=== PATIENT | female | born 1965 | race Caucasian/White ===

== ENCOUNTER 2020-07-14 13:05 | Outpatient (REF) | payer OTHER, SELFPAY ==
[2020-07-15 09:55] LABS: BV Int Neg Control Negative (Negative); BV Int Pos Control Positive (Positive)
[2020-07-15 12:46] LABS: CT PCR NOT DETECTED (Not Detect.); NG PCR NOT DETECTED (Not Detect.)
[2020-07-20 20:12] LABS: HPV mRNA E6/E7 rflx Not Detected (Not Detected)
== END 2020-07-14 13:06 | disposition home or self-care (01) ==
LOC: HO.LAB 13:05
PROVIDERS: PCP Internal Medicine; Referring Provider Internal Medicine; Visit Provider Obstetrics & Gynecology
DX: Z01.419 Encounter for gynecological examination (general) (routine) without abnormal findings (principal); Z11.3 Encounter for screening for infections with a predominantly sexual mode of transmission; R30.0 Dysuria
CPT/HCPCS: 87480; 87491; 87510; 87591; 87624; 87625; 87660; 88141; 88142

== ENCOUNTER 2020-08-07 07:46 | Outpatient (REF) | payer OTHER, SELFPAY ==
[2020-08-07 08:42] LABS: MANUAL DIFF FLAG NO
[2020-08-07 09:02] LABS: Basophils Percent Auto 0.3 % (0-2); Eosinophils Absolute Auto 0.1 X10*3/uL (0.0-0.4); Eosinophils Percent Auto 1.5 % (0-4); Imm Gran Abs Auto 0.01 X10*3/uL (0.00-0.03); Imm Gran Pct Auto 0.1 % (0.0-0.4); Lymphocytes Absolute Auto 2.7 X10*3/uL (1.2-4.9); Lymphocytes Percent Auto 39.6 % (20-40); Mean Corpuscular HGB Conc 32.6 g/dl (31.0-35.0); Mean Corpuscular Hemoglobin 27.6 pg (27.0-33.0); Mean Corpuscular Volume 84.6 fL (80-98); Mean Platelet Volume 10.3 fL (9.4-12.3); Monocytes Absolute Auto 0.5 X10*3/uL (0.1-1.2); Monocytes Percent Auto 6.7 % (2-11); Neutrophils Absolute Auto 3.5 X10*3/uL (2.0-8.3); Neutrophils Percent Auto 51.8 % (45-73); Platelet Count 253 X10*3/uL (160-400); Red Blood Count 5.08 X10*6/uL (4.20-5.50); White Blood Count 6.7 X10*3/uL (4.8-10.8)
[2020-08-07 09:21] LABS: Alanine Aminotransferase 21 U/L (0-31); Albumin Level 4.1 g/dL (3.5-5.0); Alkaline Phosphatase 91 U/L (39-117); Anion Gap 12 (12-20); Aspartate Amino Transferase 18 U/L (5-31); Bilirubin Total 0.4 mg/dL (0.0-1.0); Blood Urea Nitrogen 11 mg/dL (9-16); Calcium 8.9 mg/dL (8.4-10.2); Carbon Dioxide 27 mmol/L (22-29); Chloride 105 mmol/L (96-108); Cholesterol 186 mg/dL; Estimated Glomerular Filt Rate > 60; Glucose Fasting 99 mg/dL (60-99); HDL Cholesterol 50 mg/dL; LDL Cholesterol Calculated 117 mg/dl; Potassium 4.5 mmol/l (3.3-5.1); Sodium 139 mmol/L (135-145); Total Protein 6.7 g/dL (6.5-8.0); Triglycerides 99 mg/dL
[2020-08-07 09:43] LABS: TSH reflex Free T4 5.45 mIU/mL (0.32-4.0); Vitamin D 25-OH Total 12.3 ng/mL (>30)
[2020-08-07 10:19] LABS: Free T4 (Free Thyroxine) 0.81 ng/dL (0.71-1.85)
== END 2020-08-07 07:47 | disposition home or self-care (01) ==
LOC: HO.LAB 07:46
PROVIDERS: PCP Internal Medicine; Visit Provider Internal Medicine
DX: E66.09 Other obesity due to excess calories (principal); E55.9 Vitamin D deficiency, unspecified
CPT/HCPCS: 36415; 80053; 80061; 82306; 84439; 84443; 85025

== ENCOUNTER 2020-09-19 14:05 | Outpatient (REF) | payer OTHER, SELFPAY ==
--- NOTE | 2020-09-19 14:08 | MM_ITS ---
EXAMINATION: MM SCREENING DIGITAL BREAST TOMOSYNTHESIS, BILATERAL CLINICAL INFORMATION: Screening. Asymptomatic. The lifetime risk of breast cancer based on the Tyrer-Cuzick Model is 7%. COMPARISON: Mammography: 12/28/2016, 12/13/2014 TECHNIQUE: Digital breast tomosynthesis is performed in both the craniocaudal and mediolateral oblique views along with computer-aided detection (CAD). Synthesized 2D images are generated from the tomosynthesis. FINDINGS: There are scattered areas of fibroglandular density (ACR BI-RADS breast composition Category b). There are no significant masses, abnormal calcifications, or other abnormalities. Parenchymal pattern is similar to prior studies. No significant changes. MM/MM tomosynthesis screening BI IMPRESSION: No mammographic evidence of malignancy. ASSESSMENT: BI-RADS 1: Negative RECOMMENDATION: Routine annual mammography screening. This patient's information was entered into a reminder system with a target due date for their next mammogram.
== END 2020-09-19 14:06 | disposition home or self-care (01) ==
LOC: HO.MAMMO 14:05
PROVIDERS: PCP Internal Medicine; Visit Provider Obstetrics & Gynecology
DX: Z12.31 Encounter for screening mammogram for malignant neoplasm of breast (principal)
CPT/HCPCS: 77063; 77067

== ENCOUNTER 2020-12-14 11:37 | Outpatient (REF) | payer OTHER, SELFPAY ==
[2020-12-15 09:21] LABS: Thyroglobulin Antibodies 1 IU/mL (< or = 1); Thyroid Peroxidase Antibodies 10 IU/mL (<9)
[2020-12-19 15:02] LABS: Vitamin D 25-OH, D2 <4 ng/mL; Vitamin D 25-OH, D3 11 ng/mL; Vitamin D 25-OH, Total 11 ng/mL (30-100)
== END 2020-12-14 11:38 | disposition home or self-care (01) ==
LOC: HO.LAB 11:37
PROVIDERS: PCP Internal Medicine; Visit Provider Internal Medicine
DX: E03.9 Hypothyroidism, unspecified (principal); E55.9 Vitamin D deficiency, unspecified
CPT/HCPCS: 36415; 82306; 84443; 86376; 86800

== ENCOUNTER → 2021-07-16 09:09 | Outpatient (BNVA) | payer OTHER, SELFPAY | PROVIDERS: Visit Provider Advanced Practice Midwife ==

== ENCOUNTER 2021-08-04 12:46 | Outpatient (REF) | payer OTHER, SELFPAY ==
--- NOTE | ~2021-08-04 | US_ITS ---
EXAMINATION: US PELVIS CLINICAL INFORMATION: Abnormal uterine and vaginal bleeding. COMPARISON: Pelvic ultrasound dated 11/21/2014. TECHNIQUE: Ultrasound of the pelvis is performed using both transabdominal and transvaginal transducers along with Doppler. Transvaginal imaging is performed due to inadequate visualization transabdominally. FINDINGS: Uterus: Anteverted/anteflexed measuring 13.0 x 5.1 x 7.0 cm. A small subserosal fibroid is seen in the posterior lower uterine segment measuring 1.1 x 0.5 x 0.7 cm. A small intramural fibroid is seen in the posterior body measuring 1.2 x 0.7 x 0.8 cm. The endometrium measures up to 1.1 cm at the level the fundus. The cervix is unremarkable. Right ovary: 2.5 x 1.9 x 1.9 cm with a volume of 4.7 cm. Color Doppler showed no abnormal vascular flow. Left ovary: 3.2 x 2.5 x 2.3 cm with a volume of 9.6 cm. Anechoic follicles are seen measuring up to 1.9 cm. Color Doppler showed no abnormal vascular flow. Urinary bladder: Moderately distended without focal abnormality. US/US pelvic and transvaginal IMPRESSION: 1. Very small uterine fibroids as detailed above were not seen previously. No associated or other significant uterine abnormality.
== END 2021-08-04 12:47 | disposition home or self-care (01) ==
LOC: HO.US 12:46
PROVIDERS: PCP Internal Medicine; Visit Provider Advanced Practice Midwife
DX: N93.9 Abnormal uterine and vaginal bleeding, unspecified (principal)
CPT/HCPCS: 76830; 76856

== ENCOUNTER 2021-08-13 10:01 | Outpatient (REF) | payer OTHER, SELFPAY ==
[2021-08-13 11:40] LABS: TSH reflex Free T4 3.08 uIU/mL (0.32-4.0)
[2021-08-15 21:11] LABS: Follicle Stimulating Hormone 7.6 mIU/mL
[2021-08-16 17:02] LABS: Thyroid Peroxidase Antibodies 12 IU/mL (<9)
[2021-08-16 21:10] LABS: Thyroglobulin Antibodies <1 IU/mL (< or = 1)
[2021-08-18 14:15] LABS: Vitamin D 25-OH, D2 25 ng/mL; Vitamin D 25-OH, D3 6 ng/mL; Vitamin D 25-OH, Total 31 ng/mL (30-100)
== END 2021-08-13 10:02 | disposition home or self-care (01) ==
LOC: HO.LAB 10:01
PROVIDERS: Absent Provider Internal Medicine; PCP Internal Medicine; Visit Provider Advanced Practice Midwife
DX: E03.9 Hypothyroidism, unspecified (principal); E06.3 Autoimmune thyroiditis; E55.9 Vitamin D deficiency, unspecified; R23.2 Flushing
CPT/HCPCS: 36415; 82306; 83001; 84443; 86376; 86800

== ENCOUNTER → 2021-08-16 10:58 | Outpatient (BNVA) | payer OTHER, SELFPAY | PROVIDERS: PCP Internal Medicine; Visit Provider Advanced Practice Midwife ==

== ENCOUNTER 2021-09-22 09:49 | Outpatient (REF) | payer OTHER, SELFPAY ==
--- NOTE | ~2021-09-22 | MM_ITS ---
EXAMINATION: MM SCREENING DIGITAL BREAST TOMOSYNTHESIS, BILATERAL CLINICAL INFORMATION: Screening. Asymptomatic. The lifetime risk of breast cancer based on the Tyrer-Cuzick Model is 7%. COMPARISON: Mammography: 09/19/2020, 12/28/2016, 12/13/2014 (baseline) TECHNIQUE: Digital breast tomosynthesis is performed in both the craniocaudal and mediolateral oblique views along with computer-aided detection (CAD). Synthesized 2D images are generated from the tomosynthesis. Additional bilateral MLO views are provided. FINDINGS: There are scattered areas of fibroglandular density (ACR BI-RADS breast composition Category b). There are no significant masses, abnormal calcifications, or other abnormalities. Parenchymal pattern is similar to prior studies. There is no developing density or architectural abnormality. The axilla and skin contours are unremarkable. No significant changes. MM/MM tomosynthesis screening BI IMPRESSION: No mammographic evidence of malignancy. ASSESSMENT: BI-RADS 1: Negative RECOMMENDATION: Routine annual mammography screening. This patient's information was entered into a reminder system with a target due date for their next mammogram.
== END 2021-09-22 09:50 | disposition home or self-care (01) ==
LOC: HO.MAMMO 09:49
PROVIDERS: PCP Internal Medicine; Visit Provider Advanced Practice Midwife
DX: Z12.31 Encounter for screening mammogram for malignant neoplasm of breast (principal)
CPT/HCPCS: 77063; 77067

== ENCOUNTER 2022-06-03 09:01 | Outpatient (REF) | payer OTHER, SELFPAY ==
[2022-06-03 10:33] LABS: Alanine Aminotransferase 19 U/L (0-31); Albumin Level 4.2 g/dL (3.5-5.0); Alkaline Phosphatase 115 U/L (39-117); Anion Gap 12 (12-20); Aspartate Amino Transferase 21 U/L (5-31); Bilirubin Total 0.4 mg/dL (0.0-1.0); Blood Urea Nitrogen 11 mg/dL (9-16); Calcium 9.8 mg/dL (8.4-10.2); Carbon Dioxide 30 mmol/L (22-29); Chloride 104 mmol/L (96-108); Cholesterol 221 mg/dL; Estimated Glomerular Filt Rate > 60; Glucose Fasting 110 mg/dL (60-99); HDL Cholesterol 48 mg/dL; LDL Cholesterol Calculated 146 mg/dl; Potassium 4.8 mmol/L (3.3-5.1); Sodium 141 mmol/L (135-145); Total Protein 7.3 g/dL (6.5-8.0); Triglycerides 136 mg/dL
[2022-06-03 10:59] LABS: Thyroid Stimulating Hormone 3.75 uIU/mL (0.32-4.0); Vitamin D 25-OH Total 23.6 ng/mL (>30)
== END 2022-06-03 09:02 | disposition home or self-care (01) ==
LOC: HO.LAB 09:01
PROVIDERS: PCP Internal Medicine; Visit Provider Internal Medicine
DX: E55.9 Vitamin D deficiency, unspecified (principal); E66.9 Obesity, unspecified; E06.3 Autoimmune thyroiditis
CPT/HCPCS: 36415; 80053; 80061; 82306; 84443

== ENCOUNTER 2022-09-23 10:16 | Outpatient (REF) | payer OTHER, SELFPAY ==
--- NOTE | ~2022-09-23 | MM_ITS ---
EXAMINATION: MM SCREENING DIGITAL BREAST TOMOSYNTHESIS, BILATERAL CLINICAL INFORMATION: Screening. Asymptomatic. The lifetime risk of breast cancer based on the Tyrer-Cuzick Model is 6%. COMPARISON: Mammography: 09/22/2021, 09/19/2020, 12/28/2016 TECHNIQUE: Digital breast tomosynthesis is performed in both the craniocaudal and mediolateral oblique views along with computer-aided detection (CAD). Synthesized 2D images are generated from the tomosynthesis. FINDINGS: There are scattered areas of fibroglandular density (ACR BI-RADS breast composition Category b). There are no significant masses, abnormal calcifications, or other abnormalities. No architectural abnormality or developing density or significant change from prior studies. The axilla and skin contours are unremarkable. No significant changes. MM/MM tomosynthesis screening BI IMPRESSION: No mammographic evidence of malignancy. ASSESSMENT: BI-RADS 1: Negative RECOMMENDATION: Routine annual mammography screening. This patient's information was entered into a reminder system with a target due date for their next mammogram.
== END 2022-09-23 10:17 | disposition home or self-care (01) ==
LOC: HO.MAMMO 10:16
PROVIDERS: PCP Internal Medicine; Visit Provider Internal Medicine
DX: Z12.31 Encounter for screening mammogram for malignant neoplasm of breast (principal)
CPT/HCPCS: 77063; 77067

== ENCOUNTER 2023-05-31 14:50 | Outpatient (AMB) | payer OTHER, SELFPAY ==
--- NOTE | 2023-05-31 14:54 | MHC.PC.OV ---
Vital Signs 05/31/23 14:56 Height 5 ft Weight 203 lb BMI 39.6 BP 120/70 Blood Pressure Location Lt brachial Position Sitting Intake Visit Reasons: thyroid,lipids,vit d Intake Note: Patient here for a follow up thyroid, lipids, vitamin d Coverstitch Binder Required: No Accompanied by: Self / Same As Patient Allergies shellfish derived Allergy (Severe, Verified 05/31/23 15:06) vomitting Medication List - Last Reconciled 05/31/[address] MD cholecalciferol (vitamin D3) 25 mcg PO DAILY 90 days levothyroxine 25 mcg PO DAILY 90 days Tobacco use date assessed: 10/27/22 Dental Screening Dental Screen Date: 05/31/23 Did you have a dental visit in the last 12 months?: No Did you have a dental problem in the last 6 months where you did not have access to dental care?: No Was dental information given to patient?: Patient has dentist HPI HPI Comments History of Present Illness Details This is a 57-year-old female with autoimmune thyroiditis and low vitamin-D that comes today for follow-up on her conditions. Denies any chest pain or shortness of breath. She also has history of pure hypercholesterolemia and lipid panel will be repeated. Last TSH was about a year ago and it will be repeated. Stop taking vitamin-D few months ago because she ran out of the medication. Also has impaired glucose tolerance but denies any polyuria, polydipsia or unintentional weight loss. Fasting blood glucose will also be repeated. [facility] Medical History Obesity (BMI 35.0-39.9 without comorbidity) Autoimmune thyroiditis Hypovitaminosis D Hypothyroid Impaired glucose tolerance Vitamin D insufficiency Diverticulitis of sigmoid colon Chronic headaches Depression Surgical History History of bilateral tubal ligation Family History Mother Colon cancer Father Cancer Brother Stomach cancer Maternal Aunt CVD (cardiovascular disease) Diabetes Hypertension Social History Household Members: Children Housing: Apartment Alcohol intake: never Patient Tobacco Use Status: Never used Tobacco e-Cigarette/Vaping Use: Never Used Second Hand Smoke Exposure: No service: No Current occupational status: unemployed Sexual orientation: Straight/Heterosexual Gender identity: Female Cognitive needs: No Hearing needs: No Vision needs: Yes Questionnaire Thrive Questionnaire Date Thrive assessed: 10/27/22 KALEB-7 AMB Questionnaire KALEB-7 Date KALEB - 7 assessed: 10/27/22 Source: Developed by Drs. Yovani Betancourt, Shahnaz Koch, Cesar Padilla and colleagues, with an educational camilla from [employer]. Review of Systems Const All systems reviewed & are unremarkable except as noted in HPI and below Eyes Reports no additional complaints, Denies change in vision and Denies other visual disturbances Card Denies chest pain at rest, Denies chest pain with activity, Denies edema, Denies irregular heart rhythm, Denies claudication, Denies dyspnea, Denies dyspnea on exertion, Denies orthopnea, Denies paroxysmal nocturnal dyspnea and Denies slow heart rate Resp Denies cough, Denies dyspnea and Denies dyspnea on exertion GI Denies abdominal pain, Denies change in bowel habits, Denies excessive flatus, Denies nausea and Denies vomiting Denies urinary incontinence, Denies urinary hesitancy and Denies urinary urgency Musc Denies abnormal gait, Denies atrophy, Denies deformity and Denies limited range of motion Skin/Breast Denies bleeding lesions, Denies changing lesions and Denies rash Neuro Denies abnormal gait and Denies lack of coordination Physical exam (Primary Care) Vital Signs: Last Vital Signs BP 120/70 05/31/23 14:56 BMI result Body Mass Index 39.6 Tobacco/Smoking Status: Tobacco use Status Tobacco use date assessed 10/27/22 05/31/23 14:55 Patient Tobacco Use Status Never used Tobacco 05/31/23 14:55 Tobacco use type 06/07/22 09:56 e-Cigarette/Vaping Use Never Used 05/31/23 14:55 Thrive Assessment: Date of Thrive Assessment Date Thrive assessed 10/27/22 05/31/23 14:55 Eyes General: appearance normal, both eyes and all related structures Eyelids: Yes eyelids normal Conjunctivae: conjunctivae normal Neck Neck: Yes normal visual inspection and Yes supple Resp Effort & Inspection: normal respiratory effort Auscultation: clear to auscultation bilaterally Cardio Jugular venous distension: no JVD Rate: regular rate Rhythm: regular rhythm Heart sounds: S1 normal heart sound present and S2 normal heart sound present Extrem General: Yes full ROM Office Procedures Flu Questionnaire Does the patient have a severe egg allergy?: No Immunizations flu vacc [id number] 6mos up(PF) 60 mcg(15 mcgx4)/0.5 mL IM syringe Performing Provider: Yessica Street MD Performing Location: [facility] [place] [facility] Documented (not given) by: MARY Meng on 05/31/23 15:01 Reason Not Given: Patient Refused Assessment and Plan Assessment & Plan (1) Autoimmune thyroiditis: Code(s): E06.3 - Autoimmune thyroiditis Plan: Continue levothyroxine. Monitor TSH. (2) Hypovitaminosis D: Code(s): E55.9 - Vitamin D deficiency, unspecified Plan: Continue vitamin-D supplements. (3) Pure hypercholesterolemia: Code(s): E78.00 - Pure hypercholesterolemia, unspecified Plan: Repeat lipid panel. Start low-cholesterol diet. (4) Impaired glucose tolerance: Code(s): R73.02 - Impaired glucose tolerance (oral) Plan: Repeat fasting blood glucose. Orders: Orders Influenza [id number] Immunization Today Z23 - Encounter for immunization Vitamin D 25-OH Total Today E55.9 - Vitamin D deficiency, unspecified Lipid Panel Today E78.5 - Hyperlipidemia, unspecified Thyroid Stimulating Hormone Today E06.3 - Autoimmune thyroiditis Comprehensive [place]. Panel Fast Today E78.00 - Pure hypercholesterolemia, unspecified Medications: Refilled cholecalciferol (vitamin D3) 25 mcg PO DAILY 90 caps 3RF 90 days Coding Level of Care Code Est Pt Level 4 (82063) Diagnoses Autoimmune thyroiditis E06.3 Hypovitaminosis D E55.9 Pure hypercholesterolemia E78.00 Impaired glucose tolerance R73.02 Time Spent (min) 23
[2023-05-31 14:56] VITALS: BP 120/70; BMI 39.6
== END 2023-05-31 15:11 | disposition home or self-care (01) ==
PROVIDERS: PCP Internal Medicine; Visit Provider Internal Medicine
DX: E06.3 Autoimmune thyroiditis (principal); E55.9 Vitamin D deficiency, unspecified; E78.00 Pure hypercholesterolemia, unspecified; R73.02 Impaired glucose tolerance (oral)
CPT/HCPCS: 99214

== ENCOUNTER 2023-06-27 09:51 | Outpatient (REF) | payer OTHER, SELFPAY ==
[2023-06-27 11:30] LABS: Alanine Aminotransferase 17 U/L (0-31); Albumin Level 4.1 g/dL (3.5-5.0); Alkaline Phosphatase 96 U/L (39-117); Anion Gap 12 (12-20); Aspartate Amino Transferase 19 U/L (5-31); Bilirubin Total 0.5 mg/dL (0.0-1.0); Blood Urea Nitrogen 9 mg/dL (9-16); Calcium 9.6 mg/dL (8.4-10.2); Carbon Dioxide 26 mmol/L (22-29); Chloride 106 mmol/L (96-108); Cholesterol 211 mg/dL (<200); Estimated Glomerular Filt Rate > 60; Glucose Fasting 100 mg/dL (60-99); HDL Cholesterol 48 mg/dL (>40); LDL Cholesterol Calculated 134 mg/dL (<100); Potassium 4.2 mmol/L (3.3-5.1); Sodium 140 mmol/L (135-145); Total Protein 7.3 g/dL (6.5-8.0); Triglycerides 146 mg/dL (<150)
[2023-06-27 11:48] LABS: Vitamin D 25-OH Total 22.1 ng/mL (>30)
== END 2023-06-27 09:52 | disposition home or self-care (01) ==
LOC: HO.LAB 09:51
PROVIDERS: PCP Internal Medicine; Visit Provider Internal Medicine
DX: R73.02 Impaired glucose tolerance (oral) (principal); E78.5 Hyperlipidemia, unspecified; E55.9 Vitamin D deficiency, unspecified; E06.3 Autoimmune thyroiditis
CPT/HCPCS: 36415; 80053; 80061; 82306; 84443

== ENCOUNTER 2023-06-29 10:10 | Outpatient (AMB) | payer OTHER, SELFPAY ==
--- NOTE | 2023-06-29 10:12 | MHC.PC.OV ---
Vital Signs 06/29/23 10:13 Height 5 ft Weight 202 lb BMI 39.4 BP 122/80 Blood Pressure Location Lt brachial Position Sitting Pulse 67 Pulse Source Pulse Oximeter Pulse Oximetry (%) 97 Oxygen Delivery Method Room Air Intake Visit Reasons: Physical Exam Intake Note: Patient here for a physical exam Offset Pressman Required: No Accompanied by: Self / Same As Patient Allergies shellfish derived Allergy (Severe, Verified 06/29/23 10:28) vomitting Medication List - Last Reconciled 06/29/[address] MD cholecalciferol (vitamin D3) 25 mcg PO DAILY 90 days levothyroxine 25 mcg PO DAILY 90 days Tobacco use date assessed: 10/27/22 Dental Screening Dental Screen Date: 06/29/23 Did you have a dental visit in the last 12 months?: No Did you have a dental problem in the last 6 months where you did not have access to dental care?: No Was dental information given to patient?: Patient has dentist HPI HPI Comments History of Present Illness Details This is a 57-year-old female that comes for her physical exam. Last mammogram was August 2022 and was normal. Last Pap smear was 2019 [facility] was normal with HPV negative. Last colonoscopy was 2014 and was normal. Labs were discussed. Levothyroxine was increased and TSH will be repeated in 6 weeks. Cholesterol is elevated but does not require any statins at the moment. No chest pain or shortness of breath. [facility] Medical History Obesity (BMI 35.0-39.9 without comorbidity) Autoimmune thyroiditis Hypovitaminosis D Hypothyroid Impaired glucose tolerance Vitamin D insufficiency Diverticulitis of sigmoid colon Chronic headaches Depression Surgical History History of bilateral tubal ligation Family History Mother Colon cancer Father Cancer Brother Stomach cancer Maternal Aunt CVD (cardiovascular disease) Diabetes Hypertension Social History Household Members: Children Housing: Apartment Alcohol intake: never Patient Tobacco Use Status: Never used Tobacco e-Cigarette/Vaping Use: Never Used Second Hand Smoke Exposure: No service: No Current occupational status: unemployed Sexual orientation: Straight/Heterosexual Gender identity: Female Cognitive needs: No Hearing needs: No Vision needs: Yes Questionnaire Thrive Questionnaire Date Thrive assessed: 10/27/22 KALEB-7 AMB Questionnaire KALEB-7 Date KALEB - 7 assessed: 10/27/22 Source: Developed by Drs. Yovani Betancourt, Shahnaz Koch, Cesar Padilla and colleagues, with an educational camilla from [employer] Review of Systems Const All systems reviewed & are unremarkable except as noted in HPI and below Eyes Reports no additional complaints, Denies change in vision and Denies other visual disturbances Card Denies chest pain at rest, Denies chest pain with activity, Denies edema, Denies irregular heart rhythm, Denies claudication, Denies dyspnea, Denies dyspnea on exertion, Denies orthopnea, Denies paroxysmal nocturnal dyspnea and Denies slow heart rate Resp Denies cough, Denies dyspnea and Denies dyspnea on exertion GI Denies abdominal pain, Denies change in bowel habits, Denies excessive flatus, Denies nausea and Denies vomiting Denies urinary incontinence, Denies urinary hesitancy and Denies urinary urgency Musc Denies abnormal gait, Denies atrophy, Denies deformity and Denies limited range of motion Skin/Breast Denies bleeding lesions, Denies changing lesions and Denies rash Neuro Denies abnormal gait and Denies lack of coordination Physical exam (Primary Care) Vital Signs: Last Vital Signs Pulse 67 06/29/23 10:13 BP 122/80 06/29/23 10:13 Pulse Ox 97 06/29/23 10:13 Oxygen Delivery Method Room Air 06/29/23 10:13 BMI result Body Mass Index 39.4 Tobacco/Smoking Status: Tobacco use Status Tobacco use date assessed 10/27/22 06/29/23 10:18 Patient Tobacco Use Status Never used Tobacco 06/29/23 10:18 Tobacco use type 06/07/22 09:56 e-Cigarette/Vaping Use Never Used 06/29/23 10:18 Thrive Assessment: Date of Thrive Assessment Date Thrive assessed 10/27/22 06/29/23 10:18 Const Orientation/consciousness: patient oriented x3 HENMT Head: Yes normal to inspection, Yes normocephalic and Yes atraumatic Ears: external ears normal Eyes General: appearance normal, both eyes and all related structures Eyelids: Yes eyelids normal Conjunctivae: conjunctivae normal Neck Neck: Yes normal visual inspection and Yes supple Resp Effort & Inspection: normal respiratory effort Auscultation: clear to auscultation bilaterally Cardio Jugular venous distension: no JVD Rate: regular rate Rhythm: regular rhythm Heart sounds: S1 normal heart sound present and S2 normal heart sound present GI Inspection: Yes normal to inspection Palpation (GI): Soft to palpation and nontender Auscultation: normal bowel sounds Skin General skin exam: no rashes or lesions noted Neuro General: patient oriented x3 and no focal motor deficits Extrem General: Yes full ROM Psych Appearance: grossly normal Office Procedures Flu Questionnaire Does the patient have a severe egg allergy?: No Immunizations flu vacc [id number] 6mos up(PF) 60 mcg(15 mcgx4)/0.5 mL IM syringe Performing Provider: Yessica Street MD [facility] Documented (not given) by: MARY Meng on 06/29/23 10:19 Reason Not Given: Patient Refused Assessment and Plan Assessment & Plan (1) Physical exam: Code(s): Z00.00 - Encounter for general adult medical examination without abnormal findings Plan: Repeat in a year. Orders: Orders Influenza [id number] Immunization Today Z23 - Encounter for immunization Thyroid Stimulating Hormone 6 Weeks E06.3 - Autoimmune thyroiditis Medications: New levothyroxine 50 mcg PO DAILY 90 tabs 0RF 90 days E06.3 - Autoimmune thyroiditis Discontinued levothyroxine Discontinued Reason: Patient Completed Course 25 mcg PO DAILY 90 days 90 tabs 1RF Coding Level of Care Code Est Pt Prev Care 40-64y(55904) Diagnoses Physical exam Z00.00 Time Spent (min) 32
[2023-06-29 10:13] VITALS: BP 122/80; PULSE 67; O2SAT 97; BMI 39.4
== END 2023-06-29 10:36 | disposition home or self-care (01) ==
PROVIDERS: Visit Provider Internal Medicine
DX: Z00.00 Encounter for general adult medical examination without abnormal findings (principal)
CPT/HCPCS: 99396

== ENCOUNTER 2023-11-07 11:37 | Outpatient (REF) | payer OTHER, SELFPAY | END 2023-11-07 11:38 | disposition home or self-care (01) | LOC: HO.MAMMO 11:37 | PROVIDERS: PCP Internal Medicine; Visit Provider Internal Medicine | DX: Z12.31 Encounter for screening mammogram for malignant neoplasm of breast (principal) | CPT/HCPCS: 77063; 77067 ==

== ENCOUNTER → 2023-11-07 11:45 | Outpatient (BNV) | payer OTHER, SELFPAY | PROVIDERS: PCP Internal Medicine; Visit Provider Radiology Diagnostic Radiology | DX: Z12.31 Encounter for screening mammogram for malignant neoplasm of breast (principal) | CPT/HCPCS: 77063; 77067 ==

== ENCOUNTER 2023-11-24 14:30 | Outpatient (REF) | payer OTHER, SELFPAY ==
[2023-11-25 09:27] LABS: CT PCR NOT DETECTED (Not Detect.); NG PCR NOT DETECTED (Not Detect.)
[2023-11-25 11:14] LABS: BV Int Neg Control Negative (Negative); BV Int Pos Control Positive (Positive)
== END 2023-11-24 14:31 | disposition home or self-care (01) ==
LOC: HO.LNP 14:30
PROVIDERS: PCP Internal Medicine; Visit Provider Advanced Practice Midwife
DX: Z01.419 Encounter for gynecological examination (general) (routine) without abnormal findings (principal); Z78.0 Asymptomatic menopausal state; Z98.51 Tubal ligation status
CPT/HCPCS: 0353U; 87480; 87510; 87660; 99396

== ENCOUNTER 2023-11-24 14:30 | Outpatient (AMB) | payer OTHER, SELFPAY ==
[2023-11-24 14:53] VITALS: BP 120/70; BMI 38.7
--- NOTE | 2023-11-24 14:53 | MHC.OFFVIS ---
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 She is doing well with no concerns. Attempting to eat a healthy diet with calcium and vitamin D, not active with exercise. Currently sexually active. Denies any vaginal dryness or irritation. STI testing offered; she accepts. Last pap smear; 2019. Last mammogram; completed report not ready. Colonoscopy is UTD. Denies any family history of breast or ovarian cancer, FH colon cancer-mom. [facility] Medical History Obesity (BMI 35.0-39.9 without comorbidity) Autoimmune thyroiditis Hypovitaminosis D Hypothyroid Impaired glucose tolerance Vitamin D insufficiency Diverticulitis of sigmoid colon Chronic headaches Depression Surgical History History of bilateral tubal ligation Family History Mother Colon cancer Father Cancer Brother Stomach cancer Maternal Aunt CVD (cardiovascular disease) Diabetes Hypertension Social History Household Members: Children Housing: Apartment Alcohol intake: never Patient Tobacco Use Status: Never used Tobacco e-Cigarette/Vaping Use: Never Used Second Hand Smoke Exposure: No service: No Current occupational status: unemployed Sexual orientation: Straight/Heterosexual Gender identity: Female Cognitive needs: No Hearing needs: No Vision needs: Yes Female Reproductive History Menstrual control method: permanent sterilization Menopause type: natural Total pregnancies: 4 Full term: 4 Date of last pap smear: 07/16/20 Date of Mammogram: 11/08/23 Review of Systems Const All systems reviewed & are unremarkable except as noted in HPI and below Reports as per HPI Eyes Reports no additional complaints ENT Reports no additional complaints Card Reports no additional complaints Resp Reports no additional complaints GI Reports as per HPI and Reports no additional complaints Reports as per HPI Musc Reports no additional complaints Skin/Breast Reports as per HPI Neuro Reports no additional complaints Psych Reports no additional complaints Endo Reports no additional complaints Tushar/Lymph Reports no additional complaints Aller/Immun Reports no additional complaints Physical Exam Vital Signs: Last Vital Signs BP 120/70 11/24/23 14:53 BMI result Body Mass Index 38.7 Const General: cooperative, healthy appearing, no acute distress, well developed and alert Orientation/consciousness: patient oriented x3 HEENT Head: Yes normal to inspection Eyes General: appearance normal, both eyes and all related structures Neck Neck: Yes normal visual inspection Thyroid: Thyroid normal Chest Chest palpation & inspection: normal inspection of the chest and other (no puckering, dimpling, peau de orange, retraction, discharge, masses) Breast/axilla inspection: normal inspection of the breasts Breast/axilla palpation: normal palpation of the breasts Resp Effort & Inspection: normal respiratory effort GI Inspection: Yes normal to inspection Palpation (GI): Soft to palpation Rectal Exam - Female: deferred General: Yes bladder normal to palpation External Female Exam: normal external appearance and normal appearance of the urethra Speculum Exam - Vagina: normal appearance of the vagina, normal palpation, normal vaginal discharge and vagina atrophic Speculum Exam - Cervix: normal appearance of the cervix and normal palpation Bimanual exam- vagina & uterus: normal bimanual exam, normal palpation, uterine size normal, bladder normal to palpation, normal palpation and non-tender Bimanual Exam- Adnexa, other: no masses Skin General skin exam: no rashes or lesions noted Rashes: no rashes Neuro General: patient oriented x3 Cognition (Neuro): normal cognition Extrem General: Yes normal to inspection Psych Attitude: cooperative Thought process: Normal thought process present Assessment & Plan Assessment & Plan (1) Encounter for well woman exam with routine gynecological exam: Code(s): Z01.419 - Encounter for gynecological examination (general) (routine) without abnormal findings Plan Discussed: Current recommendations for pap smears per ASCCP guidelines. Breast awareness, periodic self breast exams and yearly mammogram. Maintain a healthy lifestyle, well balanced diet including Calcium 1,200 mg and Vitamin D 600 IU daily, and routine exercise. Contact the office with any postmenopausal bleeding. Patient verbalizes understanding and agrees to the plan of care. She was given opportunity to ask questions and all questions were answered to the best of my ability. RTO in 1 year for annual stock or delivery clerk exam. This note is constructed using voice recognition software. While every effort has been made to ensure accuracy, flange machine operator errors may have been included. Quality Reporting (2019) [facility] Smoking risk assessment performed?: Yes Patient Tobacco Use Status: Never used Tobacco Coding Level of Care Code Est Pt Prev Care 40-64y(10712) Diagnoses Encounter for well woman exam with routine gynecological exam Z01.419
== END 2023-11-24 15:20 | disposition home or self-care (01) ==
PROVIDERS: PCP Internal Medicine; Visit Provider Advanced Practice Midwife
DX: Z01.419 Encounter for gynecological examination (general) (routine) without abnormal findings (principal)
CPT/HCPCS: 99396

== ENCOUNTER 2024-05-14 13:26 | Outpatient (AMB) | payer OTHER, SELFPAY ==
--- NOTE | 2024-05-14 13:29 | MHC.PC.OV ---
Vital Signs 05/14/24 13:30 Height 5 ft Weight 203 lb BMI 39.6 BP 140/80 H Blood Pressure Location Lt brachial Position Sitting Intake Visit Reasons: Thyroid Intake Note: Patient here for a follow up thyroid Enrobing Machine Feeder Required: No Accompanied by: Self / Same As Patient Allergies shellfish derived Allergy (Severe, Verified 05/14/24 13:37) vomitting Medication List - Last Reconciled 05/14/[address] MD cholecalciferol (vitamin D3) 25 mcg PO DAILY 90 days levothyroxine 50 mcg PO DAILY 90 days Tobacco use date assessed: 05/14/24 Dental Screening Dental Screen Date: 05/14/24 Did you have a dental visit in the last 12 months?: No Did you have a dental problem in the last 6 months where you did not have access to dental care?: No Was dental information given to patient?: Patient has dentist HPI HPI Comments History of Present Illness Details This is a 58-year-old female with autoimmune thyroiditis and low vitamin-D that comes today for follow-up on her conditions. TSH and vitamin-D will be ordered. Denies any chest pain or shortness on breath. She is obese with a BMI of 39.6 and was advised to diet and exercise to reach BMI goal less than 30. Patient has not been taking her medications for about 2 months. [facility] Medical History Obesity (BMI 35.0-39.9 without comorbidity) Autoimmune thyroiditis Hypovitaminosis D Hypothyroid Impaired glucose tolerance Vitamin D insufficiency Diverticulitis of sigmoid colon Chronic headaches Depression Surgical History History of bilateral tubal ligation Family History Mother Colon cancer Father Cancer Brother Stomach cancer Maternal Aunt CVD (cardiovascular disease) Diabetes Hypertension Social History Household Members: Children Housing: Apartment Alcohol intake: never Patient Tobacco Use Status: Never used Tobacco e-Cigarette/Vaping Use: Never Used Second Hand Smoke Exposure: No service: No Current occupational status: unemployed Sexual orientation: Straight/Heterosexual Gender identity: Female Cognitive needs: No Hearing needs: No Vision needs: Yes Questionnaire PHQ-9 Over the last 2 weeks, how often have you been bothered by any of the following problems? 1. Little interest or pleasure in doing things: not at all 2. Feeling down, depressed, or hopeless: not at all 3. Trouble falling or staying asleep, or sleeping too much: not at all 4. Feeling tired or having little energy: not at all 5. Poor appetite or overeating: not at all 6. Feeling bad about yourself - or that you are a failure or have let yourself or your family down: not at all 7. Trouble concentrating on things, such as reading the newspaper or watching television: not at all 8. Moving or speaking so slowly that other people could have noticed. Or the opposite - being so fidgety or restless that you have been moving around a lot more than usual: not at all 9. Thoughts that you would be better off or of hurting yourself in some way: not at all Total score: 0 Depression Screening Interpretation: Negative Depression Screening Done: Yes 67562 - PHQ-9 Billing: Yes Source: Developed by Drs. Yovani Betancourt, Shahnaz Koch, Cesar Padilla and colleagues, with an educational camilla from [employer]. Thrive Questionnaire Date Thrive assessed: 05/14/24 I am a: Patient What is your living situation today?: I have a steady place to live Within the past 12 months, did the food you bought not last and you didn't have the money to get more?: Never true Within the past 12 months, did you worry whether your food would run out before you got money to buy more?: Never true Do you have trouble paying for medicines?: No Do you have trouble getting transportation to medical appointments?: No Do you have trouble paying your heating and electricity bill?: No Do you have trouble taking care of your child, family member or friend?: No Do you have trouble with day-to-day activities such as bathing, preparing meals, shopping, managing finances, etc.?: No Are you currently unemployed and looking for a job?: No Are you interested in more education?: No Please select the resources that you would like help with: None Currently or been in a relationship where the following occur: No concerns reported THRIVE Score: 0 AUDIT C Alcohol Use Questionnaire (AUDIT-C) 1. How often do you have a drink containing alcohol?: Never Total Score: 0 KALEB-7 AMB Questionnaire KALEB-7 Date KALEB - 7 assessed: 05/14/24 Feeling nervous, anxious, or on edge: 0 = Not at all Not being able to stop or control worryin = Not at all Worrying too much about different things: 0 = Not at all Trouble relaxin = Not at all Being so restless that it is hard to sit still: 0 = Not at all Becoming easily annoyed or irritable: 0 = Not at all Feeling afraid as if something awful might happen: 0 = Not at all Total KALEB-7 score (0-4 normal; 5-9 mild; 10-14 moderate; 15-21 severe): 0 Source: Developed by Drs. Yovani Betancourt, Shahnaz Koch, Cesar Padilla and colleagues, with an educational camilla from [employer]. KALEB-7 Assessment Billing KALEB-7 Assessment Tool: KALEB-7 Assessment 39569 Review of Systems Const All systems reviewed & are unremarkable except as noted in HPI and below Card Denies chest pain at rest, Denies chest pain with activity, Denies edema, Denies irregular heart rhythm, Denies claudication, Denies dyspnea, Denies dyspnea on exertion, Denies orthopnea, Denies paroxysmal nocturnal dyspnea and Denies slow heart rate Resp Denies cough, Denies dyspnea and Denies dyspnea on exertion Physical exam (Primary Care) Vital Signs: Last Vital Signs BP 140/80 H 05/14/24 13:30 BMI result Body Mass Index 39.6 Tobacco/Smoking Status: Tobacco use Status Tobacco use date assessed 05/14/24 05/14/24 13:34 Patient Tobacco Use Status Never used Tobacco 05/14/24 13:34 Tobacco use type 06/29/23 15:12 e-Cigarette/Vaping Use Never Used 05/14/24 13:34 PHQ-9: PHQ-9 Score PHQ-9: Total score 0 05/14/24 13:46 Depression Screening Interpretation: Negative Thrive Assessment: Date of Thrive Assessment Date Thrive assessed 05/14/24 05/14/24 13:46 Currently or been in a relationship where the following occur: No concerns reported Resp Effort & Inspection: normal respiratory effort Auscultation: clear to auscultation bilaterally Cardio Jugular venous distension: no JVD Rate: regular rate Rhythm: regular rhythm Heart sounds: S1 normal heart sound present and S2 normal heart sound present Extrem General: Yes full ROM Assessment and Plan Assessment & Plan (1) Autoimmune thyroiditis: Code(s): E06.3 - Autoimmune thyroiditis Plan: Restart levothyroxine. Monitor TSH. (2) Hypovitaminosis D: Code(s): E55.9 - Vitamin D deficiency, unspecified Plan: Restart vitamin-D supplements. Orders: Orders Vitamin D 25-OH (D2 and D3) Today E55.9 - Vitamin D deficiency, unspecified Thyroid Stimulating Hormone Today E06.3 - Autoimmune thyroiditis Medications: Refilled cholecalciferol (vitamin D3) 25 mcg PO DAILY 90 days 90 caps 3RF levothyroxine 50 mcg PO DAILY 90 days 90 tabs 0RF E06.3 - Autoimmune thyroiditis Coding Level of Care Code Est Pt Level 3 (71292) Complex EM visit Add On G2211 Diagnoses Autoimmune thyroiditis E06.3 Hypovitaminosis D E55.9 Additional Codes KALEB-7 Assessment Billing - KALEB-7 Assessment Tool: KALEB-7 Assessment 06072 ([id number]) Time Spent (min) 19
[2024-05-14 13:30] VITALS: BP 140/80; BMI 39.6
== END 2024-05-14 13:47 | disposition home or self-care (01) ==
PROVIDERS: PCP Internal Medicine; Visit Provider Internal Medicine
DX: E06.3 Autoimmune thyroiditis (principal); E55.9 Vitamin D deficiency, unspecified

== ENCOUNTER 2024-05-14 13:26 | Outpatient (REF) | payer OTHER, SELFPAY ==
[2024-05-14 15:52] LABS: Alanine Aminotransferase 22 U/L (0-31); Albumin Level 4.3 g/dL (3.5-5.0); Alkaline Phosphatase 106 U/L (39-117); Anion Gap 12 (12-20); Aspartate Amino Transferase 19 U/L (5-31); Bilirubin Total 0.4 mg/dL (0.0-1.0); Blood Urea Nitrogen 12 mg/dL (9-16); Carbon Dioxide 29 mmol/L (22-29); Chloride 105 mmol/L (96-108); Cholesterol 224 mg/dL (<200); Estimated Glomerular Filt Rate > 60; Glucose Fasting 97 mg/dL (60-99); HDL Cholesterol 51 mg/dL (>40); LDL Cholesterol Calculated 144 mg/dL (<100); Potassium 4.5 mmol/L (3.3-5.1); Sodium 141 mmol/L (135-145); Total Protein 7.6 g/dL (6.5-8.0); Triglycerides 148 mg/dL (<150)
[2024-05-14 16:10] LABS: Thyroid Stimulating Hormone 7.01 uIU/mL (0.32-4.0); Vitamin D 25-OH Total 24.1 ng/mL (>30)
[2024-05-19 14:27] LABS: Vitamin D 25-OH, D2 <4 ng/mL; Vitamin D 25-OH, D3 20 ng/mL; Vitamin D 25-OH, Total 20 ng/mL (30-100)
== END 2024-05-14 13:27 | disposition home or self-care (01) ==
LOC: HO.LAB 13:26
PROVIDERS: PCP Internal Medicine; Visit Provider Internal Medicine
DX: E78.00 Pure hypercholesterolemia, unspecified (principal); E78.5 Hyperlipidemia, unspecified; E06.3 Autoimmune thyroiditis; E55.9 Vitamin D deficiency, unspecified; E66.9 Obesity, unspecified; Z68.39 Body mass index [BMI] 39.0-39.9, adult
CPT/HCPCS: 36415; 80053; 80061; 82306; 84443; 96127; 99212

== ENCOUNTER 2024-10-01 11:02 | Outpatient (AMB) | payer OTHER, SELFPAY ==
--- NOTE | 2024-10-01 11:07 | A.OFFPC_ITS ---
Vital Signs 10/01/24 11:09 Height 5 ft Weight 205 lb BMI 40.0 BP 124/70 Blood Pressure Location Lt brachial Position Sitting Intake Visit Reasons: Annual Exam Intake Note: Patient here for an annual physical exam Ball Racker Required: No Accompanied by: Self / Same As Patient Allergies shellfish derived Allergy (Severe, Verified 10/01/24 11:16) vomitting Medication List - Last Reconciled 10/01/[address] MD cholecalciferol (vitamin D3) 25 mcg PO DAILY 90 days levothyroxine 50 mcg PO DAILY 90 days Tobacco use date assessed: 10/01/24 Dental Screening Dental Screen Date: 10/01/24 Did you have a dental visit in the last 12 months?: No Did you have a dental problem in the last 6 months where you did not have access to dental care?: No Was dental information given to patient?: Patient has dentist HPI HPI Comments History of Present Illness Details The patient is a 59-year-old female presenting for her annual wellness examination and follow-up on existing conditions, including her morbid obesity and hypothyroidism. The patient has a history of being diagnosed with morbid obesity, with a BMI of 40, and has been advised to have laboratory checks. She also has ongoing treatment for hypothyroidism with levothyroxine 50 mcg. A recent pharmacy issue involved a warning about the strength of the doses available; further clarification with the doctor was advised. The patient's vitamin D levels and cholesterol were previously checked, with cholesterol being elevated. The patient is under consideration for repeat tests. Her last screening showed normal blood glucose levels at 97, normal kidney, and liver function. There is a family history of colon cancer, as the patient's mother was diagnosed, although no specific details were identified for her father's cancer. The patient denies any current symptoms such as chest pain or shortness of breath. - Influenza vaccine up to date - Last colonoscopy in 2014; ten-year int erval recommendation noted - Last Pap smear in 2019; five-year inte rval recommendation noted - Tetanus vaccination is current, admini stered less than 10 years ago - Mammogram performed last year with a f ollow-up scheduled - Repeat cholesterol and thyroid level c [facility] planned [facility] Medical History (Updated 10/01/24 @ 11:[address] MD) Class 2 obesity with body mass index (BMI) of 38.0 to 38.9 in adult Obesity (BMI 35.0-39.9 without comorbidity) Autoimmune thyroiditis Hypovitaminosis D Hypothyroid Impaired glucose tolerance Vitamin D insufficiency Diverticulitis of sigmoid colon Chronic headaches Depression Surgical History History of bilateral tubal ligation Family History Mother Colon cancer Father Cancer Brother Stomach cancer Maternal Aunt CVD (cardiovascular disease) Diabetes Hypertension Social History Household Members: Children Housing: Apartment Alcohol intake: never Patient Tobacco Use Status: Never used Tobacco e-Cigarette/Vaping Use: Never Used Second Hand Smoke Exposure: No service: No Current occupational status: unemployed Sexual orientation: Straight/Heterosexual Gender identity: Female Cognitive needs: No Hearing needs: No Vision needs: Yes Questionnaire PHQ-9 Over the last 2 weeks, how often have you been bothered by any of the following problems? 1. Little interest or pleasure in doing things: not at all 2. Feeling down, depressed, or hopeless: not at all 3. Trouble falling or staying asleep, or sleeping too much: not at all 4. Feeling tired or having little energy: not at all 5. Poor appetite or overeating: not at all 6. Feeling bad about yourself - or that you are a failure or have let yourself or your family down: not at all 7. Trouble concentrating on things, such as reading the newspaper or watching television: not at all 8. Moving or speaking so slowly that other people could have noticed. Or the o pposite - being so fidgety or restless that you have been moving around a lot more than usual: not at all 9. Thoughts that you would be better off or of hurting yourself in some way: not at all Total score: 0 Depression Screening Interpretation: Negative Depression Screening Done: Yes 97817 - PHQ-9 Billing: Yes Source: Developed by Drs. Yovani Betancourt, Shahnaz Koch, Cesar Padilla and colleagues, with an educational camilla from [employer]. Thrive Questionnaire Date Thrive assessed: 10/01/24 I am a: Patient What is your living situation today?: I have a steady place to live Within the past 12 months, did the food you bought not last and you didn't have the money to get more?: Never true Within the past 12 months, did you worry whether your food would run out before you got money to buy more?: Never true Do you have trouble paying for medicines?: No Do you have trouble getting transportation to medical appointments?: No Do you have trouble paying your heating and electricity bill?: No Do you have trouble taking care of your child, family member or friend?: No Do you have trouble with day-to-day activities such as bathing, preparing meals, shopping, managing finances, etc.?: No Are you currently unemployed and looking for a job?: No Are you interested in more education?: No Please select the resources that you would like help with: None Currently or been in a relationship where the following occur: No concerns reported THRIVE Score: 0 AUDIT C Alcohol Use Questionnaire (AUDIT-C) 1. How often do you have a drink containing alcohol?: Never Total Score: 0 Score Reviewed/Action Taken: No KALEB-7 AMB Questionnaire KALEB-7 Date KALEB - 7 assessed: 10/01/24 Feeling nervous, anxious, or on edge: 0 = Not at all Not being able to stop or control worryin = Not at all Worrying too much about different things: 0 = Not at all Trouble relaxin = Not at all Being so restless that it is hard to sit still: 0 = Not at all Becoming easily annoyed or irritable: 0 = Not at all Feeling afraid as if something awful might happen: 0 = Not at all Total KALEB-7 score (0-4 normal; 5-9 mild; 10-14 moderate; 15-21 severe): 0 Source: Developed by Drs. Yovani Betancourt, Shahnaz Koch, Cesar Padilla and colleagues, with an educational camilla from [employer]. KALEB-7 Assessment Billing KALEB-7 Assessment Tool: KALEB-7 Assessment 06726 Review of Systems Const All systems reviewed & are unremarkable except as noted in HPI and below Card Denies chest pain at rest, Denies chest pain with activity, Denies edema, Denies irregular heart rhythm, Denies claudication, Denies dyspnea, Denies dyspnea on exertion, Denies orthopnea, Denies paroxysmal nocturnal dyspnea and Denies slow heart rate Resp Denies cough, Denies dyspnea and Denies dyspnea on exertion Physical exam (Primary Care) Vital Signs: Last Vital Signs BP 124/70 10/01/24 11:09 BMI result Body Mass Index 40.0 BMI Assessment/Plan discussion: High BMI High, discussed plan: lifestyle, weight reduction, dietary and physical activity Tobacco/Smoking Status: Tobacco use Status Tobacco use date assessed 10/01/24 10/01/24 11:14 Patient Tobacco Use Status Never used Tobacco 10/01/24 11:14 Tobacco use type 06/29/23 15:12 e-Cigarette/Vaping Use Never Used 10/01/24 11:14 PHQ-9: PHQ-9 Score PHQ-9: Total score 0 10/01/24 11:15 Depression Screening Interpretation: Negative Thrive Assessment: Date of Thrive Assessment Date Thrive assessed 10/01/24 10/01/24 11:14 Currently or been in a relationship where the following occur: No concerns reported [facility] Head: Yes normal to inspection, Yes normocephalic and Yes atraumatic Ears: external ears normal Mouth: lip normal Eyes General: appearance normal, both eyes and all related structures Eyelids: Yes eyelids normal Conjunctivae: conjunctivae normal Neck Neck: Yes normal visual inspection and Yes supple Resp Effort & Inspection: normal respiratory effort Auscultation: clear to auscultation bilaterally Cardio Jugular venous distension: no JVD Rate: regular rate Rhythm: regular rhythm Heart sounds: S1 normal heart sound present and S2 normal heart sound present GI Inspection: Yes normal to inspection Palpation (GI): Soft to palpation and nontender Auscultation: normal bowel sounds Skin General skin exam: no rashes or lesions noted Neuro General: no focal motor deficits Extrem General: Yes full ROM Psych Appearance: grossly normal Office Procedures Flu Questionnaire Does the patient have a severe egg allergy?: No Immunizations Fluarix Triv [id number] (PF) 45 mcg (15 mcg x 3)/0.5 mL IM syringe Performing Provider: Yessica Street MD Performing Location: [facility] [place] [facility] Document[facility] (not given) by: MARY Meng on 10/01/24 11:15 Reason Not Given: Patient Refused Coding Level of Care Code Est Pt Prev Care 40-64y(85055) Diagnoses Physical exam Z00.00 Morbid obesity with BMI of 40.0-44.9, adult E66.01; Z68.41 Additional Codes PHQ-9 - 77030 - PHQ-9 Billing: Yes ([id number]) KALEB-7 Assessment Billing - KALEB-7 Assessment Tool: KALEB-7 Assessment 63641 ([id number]) Time Spent (min) 30 Assessment & Plan Assessment & Plan (1) Physical exam: Code(s): Z00.00 - Encounter for general adult medical examination without abnormal findings Category: Medical (2) Morbid obesity with BMI of 40.0-44.9, adult: Code(s): E66.01 - Morbid (severe) obesity due to excess calories; Z68.41 - Body mass index [BMI] 40.0-44.9, adult Category: Medical Plan - Continue current levothyroxine dosage and address pharmacy concerns about dose strength availability - Recommend colonoscopy per interval schedule; arrange for home test kit if pref erred - Schedule repeat lab work to monitor cholesterol, thyroid levels, and add glucose check - Provide Pap smear screening as due - Encourage continuation of current vitamin D supplementation Patient was informed and verbally consented to the use of an ambient scribe for clinic note documentation during this visit. During the visit, I emphasized the importance of scheduled screenings, partic trey in light of her family history of colon cancer. Discussed arranging a colonoscopy this year and provided the option of a home test kit for convenience. We addressed the concern over levothyroxine dosage raised by the pharmacy and confirmed the medication's continuation, pending further lab results and availability issues. I reiterated the need for ongoing management of morbid obesity, cholesterol, and thyroid hormone levels, emphasizing that adherence to preventative care recommendations, including upcoming mammograms and Pap smear, was crucial. Our follow-up will continue to assess the management and effectiveness of current therapeutic interventions. Orders: Orders Influenza [id number] Immunization Today Z23 - Encounter for immunization Lipid Panel Today E78.5 - Hyperlipidemia, unspecified Thyroid Stimulating Hormone Today E06.3 - Autoimmune thyroiditis Vitamin D 25-OH Total Today E55.9 - Vitamin D deficiency, unspecified Comprehensive [place]. Panel Fast Today R73.02 - Impaired glucose tolerance (oral) Referrals Cologuard Test Z12.11 - Encounter for screening for malignant neoplasm of colon, Z12.12 - Encounter for screening for malignant neoplasm of rectum [employer] Referral Z12.4 - Encounter for screening for malignant neoplasm of cervix Medications: Refilled levothyroxine 50 mcg PO DAILY 90 days 90 tabs 1RF E06.3 - Autoimmune thyroiditis cholecalciferol (vitamin D3) 25 mcg PO DAILY 90 days 90 caps 3RF Patient Instructions: - Arrange colonoscopy and consider home test kit if preferred - Continue current dose of levothyroxine and address any strength availability issues with pharmacy - Schedule repeat lab tests as discussed: cholesterol, thyroid, and glucose checks - Maintain vitamin D supplementation - Follow scheduled appointments for mammogram and Pap smear
[2024-10-01 11:09] VITALS: BP 124/70; BMI 40.0
== END 2024-10-01 11:32 | disposition home or self-care (01) ==
PROVIDERS: PCP Internal Medicine; Visit Provider Internal Medicine
DX: Z00.00 Encounter for general adult medical examination without abnormal findings (principal); E66.01 Morbid (severe) obesity due to excess calories; Z68.41 Body mass index [BMI] 40.0-44.9, adult; Z23 Encounter for immunization

== ENCOUNTER → 2024-10-01 11:02 | Outpatient (BNVA) | payer OTHER, SELFPAY | PROVIDERS: PCP Internal Medicine; Visit Provider Internal Medicine | DX: Z00.00 Encounter for general adult medical examination without abnormal findings (principal); E66.01 Morbid (severe) obesity due to excess calories; Z68.41 Body mass index [BMI] 40.0-44.9, adult; Z71.3 Dietary counseling and surveillance | CPT/HCPCS: 90471; 96127; 99396 ==

== ENCOUNTER 2024-11-26 11:05 | Outpatient (REF) | payer OTHER, SELFPAY ==
[2024-12-02 15:25] LABS: HPV Genotype 16 Negative (Negative); HPV Genotype 18 Negative (Negative); HPV High Risk Negative (Negative)
== END 2024-11-26 11:06 | disposition home or self-care (01) ==
LOC: HO.LNP 11:05
PROVIDERS: PCP Internal Medicine; Visit Provider Advanced Practice Midwife
DX: Z01.419 Encounter for gynecological examination (general) (routine) without abnormal findings (principal); Z11.51 Encounter for screening for human papillomavirus (HPV)
CPT/HCPCS: 87626; 88175; 99396; 99459

== ENCOUNTER 2024-11-26 11:05 | Outpatient (AMB) | payer OTHER, SELFPAY ==
[2024-11-26 11:08] VITALS: BP 122/76; BMI 40.0
--- NOTE | 2024-11-26 11:08 | MHC.OFFVIS ---
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 She is doing well with no double end trimmer concerns. Currently sexually active. Denies any vaginal dryness or irritation. STI testing offered; she declines. Attempting to eat a healthy diet with calcium and vitamin D. Last pap smear; 2019. Last mammogram; 2023. ColoGard completed. Denies any family history of breast, ovarian cancer. FH colon cancer. [facility] Medical History Class 2 obesity with body mass index (BMI) of 38.0 to 38.9 in adult Obesity (BMI 35.0-39.9 without comorbidity) Autoimmune thyroiditis Hypovitaminosis D Hypothyroid Impaired glucose tolerance Vitamin D insufficiency Diverticulitis of sigmoid colon Chronic headaches Depression Surgical History History of bilateral tubal ligation Family History Mother Colon cancer Father Cancer Brother Stomach cancer Maternal Aunt CVD (cardiovascular disease) Diabetes Hypertension Social History Household Members: Children Housing: Apartment Alcohol intake: never Patient Tobacco Use Status: Never used Tobacco e-Cigarette/Vaping Use: Never Used Second Hand Smoke Exposure: No service: No Current occupational status: unemployed Sexual orientation: Straight/Heterosexual Gender identity: Female Cognitive needs: No Hearing needs: No Vision needs: Yes Female Reproductive History Menstrual control method: permanent sterilization Permanent Sterilization: BTL Total pregnancies: 4 Full term: 4 Number of Living Children: 4 Date of last pap smear: 07/14/20 (neg pap and hpv) Date of Mammogram: 11/07/23 (Birad 1) Review of Systems Const All systems reviewed & are unremarkable except as noted in HPI and below Reports as per HPI Eyes Reports no additional complaints ENT Reports no additional complaints Card Reports no additional complaints Resp Reports no additional complaints GI Reports as per HPI and Reports no additional complaints Reports as per HPI Musc Reports no additional complaints Skin/Breast Reports as per HPI Neuro Reports no additional complaints Psych Reports no additional complaints Endo Reports no additional complaints Tushar/Lymph Reports no additional complaints Aller/Immun Reports no additional complaints Physical Exam Vital Signs: Last Vital Signs BP 122/76 11/26/24 11:08 BMI result Body Mass Index 40.0 Const General: cooperative, healthy appearing, no acute distress, well developed and alert Orientation/consciousness: patient oriented x3 HEENT Head: Yes normal to inspection Eyes General: appearance normal, both eyes and all related structures Neck Neck: Yes normal visual inspection Thyroid: Thyroid normal Chest Chest palpation & inspection: normal inspection of the chest and other (no puckering, dimpling, peau de orange, retraction, discharge, masses) Breast/axilla inspection: normal inspection of the breasts Breast/axilla palpation: normal palpation of the breasts Resp Effort & Inspection: normal respiratory effort GI Inspection: Yes normal to inspection Palpation (GI): Soft to palpation Rectal Exam - Female: deferred General: Yes bladder normal to palpation External Female Exam: normal external appearance and normal appearance of the urethra Speculum Exam - Vagina: normal appearance of the vagina, normal palpation and normal vaginal discharge Speculum Exam - Cervix: normal appearance of the cervix and normal palpation Bimanual exam- vagina & uterus: normal bimanual exam, normal palpation, uterine size normal, bladder normal to palpation, normal palpation, non-tender and other (Bled slightly with Pap) Bimanual Exam- Adnexa, other: no masses Skin General skin exam: no rashes or lesions noted Rashes: no rashes Neuro General: patient oriented x3 Cognition (Neuro): normal cognition Extrem General: Yes normal to inspection Psych Attitude: cooperative Thought process: Normal thought process present Assessment & Plan Assessment & Plan (1) Encounter for well woman exam with routine gynecological exam: Code(s): Z01.419 - Encounter for gynecological examination (general) (routine) without abnormal findings Category: Medical Plan Discussed: Current recommendations for pap smears per ASCCP guidelines. Pap obtained. Breast awareness, periodic self breast exams and yearly mammogram. Mammogram ordered. Maintain a healthy lifestyle, well balanced diet including Calcium 1,200 mg and Vitamin D 600 IU daily, and routine exercise. Contact the office with any postmenopausal bleeding. Patient verbalizes understanding and agrees to the plan of care. She was given opportunity to ask questions and all questions were answered to the best of my ability. RTO in 1 year for annual double end trimmer exam. This note is constructed using voice recognition software. While every effort has been made to ensure accuracy, nuts and bolts assembler errors may have been included. Orders: Orders HPV High risk Today Z01.419 - Encounter for gynecological examination (general) (routine) without abnormal findings Pap Smear Today Z01.419 - Encounter for gynecological examination (general) (routine) without abnormal findings MM tomosynthesis screening BI Today Z12.31 - Encounter for screening mammogram for malignant neoplasm of breast Coding Level of Care Code Est Pt Prev Care 40-64y(39487) Diagnoses Encounter for well woman exam with routine gynecological exam Z01.419
== END 2024-11-26 11:49 | disposition home or self-care (01) ==
LOC: HO.HWS 11:05
PROVIDERS: PCP Internal Medicine; Visit Provider Advanced Practice Midwife
DX: Z01.419 Encounter for gynecological examination (general) (routine) without abnormal findings (principal)
CPT/HCPCS: 99396; 99459

== ENCOUNTER 2025-06-24 08:01 | Outpatient (REF) | payer OTHER, SELFPAY ==
--- OUTSIDE RECORDS SUMMARY | 2025-06-24 08:07 | XMS_ITS | Patient Health Record ---
Author Organization [facility] Address [address] [place] [address] Care Team Providers Care Distributing Clerk Name Role Phone Yessica Del Cid Primary Care Provider Yovani Hooper Unavailable [phone] Reason For Referral No Information Medications Medication SIG (Take, Route, Frequency, Duration) Notes Start Date End Date Status Tylenol 325 MG 1 tablet as needed O rally PRN Active Colyte w Flavor Packs 240 GM as directed Orally as directed; Duration: 1 day(s) 05/29/2015 Active Vitamin D Active Problems Problem Type SNOMED Code ICD Code Onset Dates Problem Status W/U Status Risk Notes Problem Screening for malignant neoplasm of colon (044836028) Encounter for screening for malignant neoplasm of colon (Z12.11) Active confirmed Problem Pre-procedure evaluation check (915284575) Encounter for other preprocedural examination (Z01.818) Active confirmed Plan Of Treatment Future Test Test Name Order Date COLONOSCOPY 05/28/2015 Insurance Providers Payer Name Payer Address Payer Phone Subscriber Number Group Number Insured Name Patient Relationship to Insured Coverage Start Date Coverage End Date [facility] [address] [place] [phone] [id number] [place] Self - patient is the insured Medical (General) History Medical History History ICD Code Denies [place],DM,CVA,Lung disease,renal dise ase Surgical History Surgery Date(Month/Year) tubal ligation 2009
[2025-06-24 09:00] LABS: Alanine Aminotransferase 26 U/L (0-31); Albumin Level 4.3 g/dL (3.5-5.0); Alkaline Phosphatase 104 U/L (39-117); Anion Gap 10 (12-20); Aspartate Amino Transferase 24 U/L (5-31); Blood Urea Nitrogen 10 mg/dL (9-16); Calcium 9.3 mg/dL (8.4-10.2); Carbon Dioxide 29 mmol/L (22-29); Chloride 107 mmol/L (96-108); Cholesterol 184 mg/dL (<200); Estimated Glomerular Filt Rate > 60; HDL Cholesterol 45 mg/dL (>40); Potassium 4.0 mmol/L (3.3-5.1); Sodium 142 mmol/L (135-145); Total Protein 7.0 g/dL (6.5-8.0); Triglycerides 126 mg/dL (<150)
[2025-06-24 09:17] LABS: Thyroid Stimulating Hormone 6.85 uIU/mL (0.32-4.0)
== END 2025-06-24 08:02 | disposition home or self-care (01) ==
LOC: HO.LAB 08:01
PROVIDERS: PCP Internal Medicine; Visit Provider Internal Medicine
DX: E06.3 Autoimmune thyroiditis (principal); R73.02 Impaired glucose tolerance (oral); E78.5 Hyperlipidemia, unspecified; E55.9 Vitamin D deficiency, unspecified
CPT/HCPCS: 36415; 80053; 80061; 82306; 84443

== ENCOUNTER 2025-06-25 16:23 | Outpatient (AMB) | payer OTHER, SELFPAY ==
[2025-06-25 16:29] VITALS: BP 120/76; PULSE 77; O2SAT 96; BMI 39.1
--- NOTE | 2025-06-25 16:29 | A.OFFPC_ITS ---
Vital Signs 06/25/25 16:29 Height 5 ft Weight 200 lb BMI 39.1 BP 120/76 Blood Pressure Location Lt brachial Position Sitting Pulse 77 Pulse Source Pulse Oximeter Pulse Oximetry (%) 96 Oxygen Delivery Method Room Air Intake Visit Reasons: thyroid Accounts Receivable Accountant Required: No Accompanied by: Self / Same As Patient Allergies shellfish derived Allergy (Severe, Verified 06/25/25 17:01) vomitting Medication List - Last Reconciled 06/25/[address] MD cholecalciferol (vitamin D3) 25 mcg PO DAILY 90 days levothyroxine 50 mcg PO DAILY 90 days Tobacco use date assessed: 06/25/25 Dental Screening Dental Screen Date: 06/25/25 HPI HPI Comments History of Present Illness Details The patient is a 59-year-old female presenting for follow-up of hypothyroidism and low vitamin D. She has a known allergy to shellfish. Her current medications include vitamin D 25 mcg and levothyroxine 50 mcg once daily. Regarding her hypothyroidism, her TSH was previously 7, which prompted an increase in her levothyroxine dose to 50 mcg. The prior 25 mcg dose was considered too low. With the 50 mcg dose, she reports side effects including lightheadedness, queasiness, a hunger-like pain in her stomach, and brain fog. Recent labs show her TSH is 5.85. Her lab work from yesterday also showed a fasting blood glucose of 105 mg/dL, an increase from 97 mg/dL previously. Her total cholesterol has improved, decreasing from 225 to 184. Electrolytes, kidney function, and liver enzymes were normal. The patient reports she has been cutting down on junk food. She has experienced a weight loss of approximately 5 pounds, with her weight decreasing from a high of around 205-206 pounds to 200 pounds. [facility] Medical History (Updated 06/27/25 @ 13:[address] MD) Morbid obesity with BMI of 40.0-44.9, adult Class 2 obesity with body mass index (BMI) of 38.0 to 38.9 in adult Obesity (BMI 35.0-39.9 without comorbidity) Autoimmune thyroiditis Hypovitaminosis D Hypothyroid Impaired glucose tolerance Vitamin D insufficiency Diverticulitis of sigmoid colon Chronic headaches Depression Surgical History History of bilateral tubal ligation Family History Mother Colon cancer Father Cancer Brother Stomach cancer Maternal Aunt CVD (cardiovascular disease) Diabetes Hypertension Social History Household Members: Children Housing: Apartment Alcohol intake: never Patient Tobacco Use Status: Never used Tobacco e-Cigarette/Vaping Use: Never Used Second Hand Smoke Exposure: No service: No Current occupational status: unemployed Sexual orientation: Straight/Heterosexual Gender identity: Female Cognitive needs: No Hearing needs: No Vision needs: Yes Questionnaire Thrive Questionnaire Date Thrive assessed: 10/01/24 I am a: Patient What is your living situation today?: I have a steady place to live Within the past 12 months, did the food you bought not last and you didn't have the money to get more?: Never true Within the past 12 months, did you worry whether your food would run out before you got money to buy more?: Never true Do you have trouble paying for medicines?: No Do you have trouble getting transportation to medical appointments?: No Do you have trouble paying your heating and electricity bill?: No Do you have trouble taking care of your child, family member or friend?: No Do you have trouble with day-to-day activities such as bathing, preparing meals, shopping, managing finances, etc.?: No Are you currently unemployed and looking for a job?: No Are you interested in more education?: No Please select the resources that you would like help with: None Currently or been in a relationship where the following occur: No concerns reported THRIVE Score: 0 AUDIT C Alcohol Use Questionnaire (AUDIT-C) 1. How often do you have a drink containing alcohol?: Never 3. How often do you have six or more drinks on one occasion?: Never Total Score: 0 Score Reviewed/Action Taken: No KALEB-7 AMB Questionnaire KALEB-7 Date KALEB - 7 assessed: 10/01/24 Source: Developed by Drs. Yovani Betancourt, Shahnaz Koch, Cesar Padilla and colleagues, with an educational camilla from [employer]. Review of Systems Const All systems reviewed & are unremarkable except as noted in HPI and below Card Denies chest pain at rest, Denies chest pain with activity, Denies edema, Denies irregular heart rhythm, Denies claudication, Denies dyspnea, Denies dyspnea on exertion, Denies orthopnea, Denies paroxysmal nocturnal dyspnea and Denies slow heart rate Resp Denies cough, Denies dyspnea and Denies dyspnea on exertion GI Denies abdominal pain, Denies change in bowel habits, Denies excessive flatus, Denies nausea and Denies vomiting Physical exam (Primary Care) Vital Signs: Last Vital Signs Pulse 77 06/25/25 16:29 BP 120/76 06/25/25 16:29 Pulse Ox 96 06/25/25 16:29 Oxygen Delivery Method Room Air 06/25/25 16:29 BMI result Body Mass Index 39.1 BMI Assessment/Plan discussion: High BMI High, discussed plan: lifestyle, weight reduction, dietary and physical activity Tobacco/Smoking Status: Tobacco use Status Tobacco use date assessed 06/25/25 06/25/25 16:36 Patient Tobacco Use Status Never used Tobacco 06/25/25 16:36 Tobacco use type 06/29/23 15:12 e-Cigarette/Vaping Use Never Used 06/25/25 16:36 Thrive Assessment: Date of Thrive Assessment Date Thrive assessed 10/01/24 06/25/25 16:36 Currently or been in a relationship where the following occur: No concerns reported Resp Effort & Inspection: normal respiratory effort Auscultation: clear to auscultation bilaterally Cardio Jugular venous distension: no JVD Rate: regular rate Rhythm: regular rhythm Heart sounds: S1 normal heart sound present and S2 normal heart sound present Extrem General: Yes full ROM Coding Level of Care Code Est Pt Level 4 (49737) Diagnoses Autoimmune thyroiditis E06.3 Hypovitaminosis D E55.9 Impaired glucose tolerance R73.02 Time Spent (min) 22 Assessment & Plan Assessment & Plan (1) Autoimmune thyroiditis: Code(s): E06.3 - Autoimmune thyroiditis Category: Medical (2) Hypovitaminosis D: Code(s): E55.9 - Vitamin D deficiency, unspecified Category: Medical (3) Impaired glucose tolerance: Code(s): R73.02 - Impaired glucose tolerance (oral) Category: Medical Plan Plan 1. Hypothyroidism, Unspecified The patient's TSH remains elevated at 5.85 despite increasing levothyroxine to 50 mcg, indicating the dose is still insufficient. She reports side effects including queasiness, lightheadedness, and a hunger-like pain with this dose. The plan is to continue levothyroxine 50 mcg daily. A medication will be prescribed for the stomach discomfort, to be taken with food one hour after the morning thyroid medication. A repeat non-fasting TSH level will be checked in six weeks. 2. Vitamin D Deficiency, Unspecified The patient has run out of her vitamin D 25 mcg supplement. A prescription for vitamin D will be provided. Dietary counseling was provided, including consuming salmon twice a week and vitamin D-enriched milk and yogurt. 3. Prediabetes Recent fasting blood glucose was 105 mg/dL, indicating prediabetes. The patient was advised to monitor her diet and try to exercise. No repeat labs will be ordered at this time. 4. Hyperlipidemia, Unspecified The patient's total cholesterol has improved significantly, decreasing to 184 from 225, attributed to dietary changes such as reducing junk food intake. No medication is needed for cholesterol management at this time. 5. Obesity, Unspecified The patient has lost 5 pounds, with a current BMI of 39.1, and is no longer classified as morbidly obese. The weight loss is attributed to her dietary hoffman es. Encouraged to continue with her current efforts. Orders: Orders Thyroid Stimulating Hormone 6 Weeks E06.3 - Autoimmune thyroiditis Medications: New dicyclomine 20 mg PO TID 90 tabs 0RF 30 days Refilled cholecalciferol (vitamin D3) 25 mcg PO DAILY 90 caps 3RF 90 days
--- OUTSIDE RECORDS SUMMARY | 2025-06-25 20:13 | XMS_ITS | Patient Health Record ---
Author Organization [facility] Address [address] [place] [address] Care Team Providers Care Emergency Medicine Nurse Practitioner Name Role Phone Yessica Del Cid Primary Care Provider Yovani Hooper Unavailable [phone] Reason For Referral No Information Medications Medication [...] Problem Screening for malignant neoplasm of colon ([id number]) Encounter for screening for malignant neoplasm of colon (Z12.11) Active confirmed Problem Pre-procedure evaluation check ([id number]) Encounter for other preprocedural examination (Z01.818) Active confirmed Plan Of Treatment Future Test Test Name Order Date COLONOSCOPY 05/28/2015 Insurance Providers Payer Name Payer Address Payer Phone Subscriber Number Group Number Insured Name Patient Relationship to Insured Coverage Start Date Coverage End Date MEDICAID OF [employer] [facility] [address] [place] [phone] [id number] [place] Self - patient is the insured Medical (General) History Medical History History ICD Code Denies [place],DM,CVA,Lung disease,renal dise ase Surgical History Surgery Date(Month/Year) tubal ligation 2009
== END 2025-06-25 17:13 | disposition home or self-care (01) ==
LOC: HO.HMCH 16:24
PROVIDERS: PCP Internal Medicine; Visit Provider Internal Medicine
DX: E06.3 Autoimmune thyroiditis (principal); E55.9 Vitamin D deficiency, unspecified; R73.02 Impaired glucose tolerance (oral)

== ENCOUNTER → 2025-06-25 16:23 | Outpatient (BNVA) | payer OTHER, SELFPAY | PROVIDERS: PCP Internal Medicine; Visit Provider Internal Medicine | DX: E06.3 Autoimmune thyroiditis (principal); E03.9 Hypothyroidism, unspecified; E55.9 Vitamin D deficiency, unspecified; R73.02 Impaired glucose tolerance (oral); R73.03 Prediabetes; E78.5 Hyperlipidemia, unspecified; E66.9 Obesity, unspecified; Z68.39 Body mass index [BMI] 39.0-39.9, adult | CPT/HCPCS: 99212 ==